=== PATIENT | female | born 1980 | race Caucasian/White ===

== ENCOUNTER 2017-12-04 18:51 | Emergency (ER) | END 2017-12-04 19:40 | disposition left against medical advice (07) ==

== ENCOUNTER 2019-07-11 19:50 | Emergency (ER) | payer SELFPAY ==
[~2019-07-11] VITALS: Ht 162.6 cm; Wt 77.3 kg
[~2019-07-11 19:50] MED LIST: IBUP-1542 PO; MISC; NAPR-985 PO; VICES PO
[2019-07-11 19:52] VITALS: BP 133/92; PULSE 84; RESP 18; Ht 162.6 cm; Wt 77.3 kg
== END 2019-07-11 21:03 | disposition left against medical advice (07) ==
LOC: E/R 19:50
DX: Z53.21 Procedure and treatment not carried out due to patient leaving prior to being seen by health care provider (principal)